=== PATIENT | female | born 1985 | race Caucasian/White ===

== ENCOUNTER 2018-03-16 07:42 | Emergency (ER) | payer BC ==
[~2018-03-16] VITALS: Ht 165.1 cm; Wt 81.7 kg
[~2018-03-16 07:42] MED LIST: ACET325 PO; AMOX500 PO; ASPI81CH PO; Amoxicillin875 MG PO; Augmentin 875-1 EACH PO; CIPR500 PO; CITA20 PO; Cheratussin AC118 ML PO; Crutch1 EACH MISC; DOCU100 PO; GUAI120S1 PO; HYDMOR2 PO; IBUP800 PO; LORA.5 PO; Norco 5-325 Ta1 EACH PO; VICODIN 5-3001 EACH PO; Vanquish Caple1 EACH PO
== END 2018-03-16 09:17 | disposition home or self-care (01) ==
LOC: ER 07:42
DX: J02.9 Acute pharyngitis, unspecified (principal); Z88.8 Allergy status to other drugs, medicaments and biological substances
CPT/HCPCS: 87081; 87430

== ENCOUNTER → 2019-05-03 | Outpatient (CLI) | payer BC ==
[2019-05-07 15:06] LABS: HPV 16 Negative (Negative); HPV 18 Negative (Negative); HPV OTHER HR TYPES Negative (Negative)
== END | disposition home or self-care (01) ==
LOC: LAB SHORT 16:17 → LAB 16:17
PROVIDERS: Obstetrics & Gynecology
DX: Z12.4 Encounter for screening for malignant neoplasm of cervix (principal)
CPT/HCPCS: 87624; G0123

== ENCOUNTER 2020-12-24 08:45 | Inpatient (IN) | payer BC, OTHER ==
[~2020-12-24] VITALS: Ht 162.6 cm; Wt 101.0 kg
[~2020-12-24 08:45] MED LIST changes: +ALLEGRA ALLERG180 MG; +Flagyl250 MG PO; +PRENATAL TABLE1 EAC2; +VERA180ERB PO
[2020-12-24 10:05] LABS: BASOPHILS ABSOLUTE AUTO 0.03 K/mm3 (0.00-0.23); BASOPHILS PERCENT AUTO 0 % (0-2); EOSINOPHILS ABSOLUTE AUTO 0.03 K/mm3 (0.00-0.68); EOSINOPHILS PERCENT AUTO 0 % (0-6); Hematocrit 38.5 % (33.0-51.0); Hemoglobin 12.6 g/dL (11.5-16.0); IMMATURE GRAN ABSOLUTE AUTO 0.09 K/mm3 (0.00-0.10); IMMATURE GRAN PERCENT AUTO 1 % (0-1); LYMPHOCYTES ABSOLUTE AUTO 2.34 K/mm3 (0.84-5.20); LYMPHOCYTES PERCENT AUTO 22 % (21-46); MONOCYTES ABSOLUTE AUTO 0.87 K/mm3 (0.16-1.47); MONOCYTES PERCENT AUTO 8 % (4-13); Mean Corpuscular HGB 28.4 pg (26.0-34.0); Mean Corpuscular HGB Conc 32.7 g/dL (31.5-36.5); Mean Corpuscular Volume 87 fL (80-100); Mean Platelet Volume 11.2 fL (9.1-12.4); NEUTROPHILS ABSOLUTE AUTO 7.27 K/mm3 (1.96-9.15); NEUTROPHILS PERCENT AUTO 68 % (41-73); Platelet Count 201 K/mm3 (150-400); RDW Standard Deviation 53.8 fL (35.1-46.3); Red Blood Cell Count 4.43 M/mm3 (3.80-5.20); White Blood Cell Count 10.63 K/mm3 (4.00-11.30)
[2020-12-24 10:43] LABS: Influenza A, PCR Negative (NEGATIVE); Influenza B, PCR Negative (NEGATIVE); Resp Syncytial Virus, PCR Negative (NEGATIVE); SARS-Cov-2 (COVID-19) PCR, MMC Negative (NEGATIVE)
--- NOTE | 2020-12-24 12:27 | NUR ---
12/24/20 1227 ElysianLouisa M BABY A, MALE DELIVERED AT 1157. BABY B, MALE DELIVERED AT 1159. CORD BLOOD WAS COLLECTED INDIVIDUALLY ON BABY A AND BABY B. BOTH CORD BLOOD COLLECTIONS WERE GIVEN TO JOANNE HAYES TO SEND TO LAB. CORD SEGMENTS WERE ALSO COLLECTED INDIVIDUALLY AND GIVEN TO RT NIK FOR CORD BLOOD GASSES PER DR. TAPIA'S ORDER.
--- NOTE | 2020-12-24 23:44 | NUR ---
190-SBAR FROM Stewart MENJIVAR RN ASSUMED CARE OF PT AT THAT TIME.
[2020-12-25 05:43] LABS: BASOPHILS ABSOLUTE AUTO 0.03 K/mm3 (0.00-0.23); BASOPHILS PERCENT AUTO 0 % (0-2); EOSINOPHILS ABSOLUTE AUTO 0.03 K/mm3 (0.00-0.68); EOSINOPHILS PERCENT AUTO 0 % (0-6); Hematocrit 32.3 % (33.0-51.0); Hemoglobin 10.6 g/dL (11.5-16.0); IMMATURE GRAN ABSOLUTE AUTO 0.09 K/mm3 (0.00-0.10); IMMATURE GRAN PERCENT AUTO 1 % (0-1); LYMPHOCYTES ABSOLUTE AUTO 2.13 K/mm3 (0.84-5.20); LYMPHOCYTES PERCENT AUTO 16 % (21-46); MONOCYTES PERCENT AUTO 8 % (4-13); Mean Corpuscular HGB 28.6 pg (26.0-34.0); Mean Corpuscular HGB Conc 32.8 g/dL (31.5-36.5); Mean Corpuscular Volume 87 fL (80-100); Mean Platelet Volume 11.5 fL (9.1-12.4); NEUTROPHILS ABSOLUTE AUTO 10.34 K/mm3 (1.96-9.15); NEUTROPHILS PERCENT AUTO 75 % (41-73); Platelet Count 180 K/mm3 (150-400); RDW Coefficient Variation 17.1 % (11.7-14.2); RDW Standard Deviation 54.7 fL (35.1-46.3); White Blood Cell Count 13.72 K/mm3 (4.00-11.30)
--- NOTE | 2020-12-25 16:39 | NUR ---
CONSULT FOR TWIN BOYS, BORN AT 36 WEEKS GESTATION AND NOW 24 HOURS OLD. BABY A WT LOSS: 4%. BABY B WT LOSS: 6%. CURRENTLY BOTTLE FEEDING FORMULA WITH SUPPLEMENTS OF EBM WHEN AVAILABLE. BABIES TIRE QUICKLY WITH FEEDINGS. INSTRUCT IN ENERGY CONSERVATION OF THE PRE TERM BABY, BALANCING THE NEEDED INTAKE OF CALORIES WITH THE AMOUNT OF CALORIES EXPENDED DURING FEEDING AND HANDLING. RESTRESSED THE IMPORTANCE OF PUMPING AT LEAST 8X/DAY FOR 15-20 MINUTES TO STIMULATE MILK PRODUCTION AND AMOUNT PRODUCED WILL INCREASE EACH DAY. BOTH PARENTS ATTENTIVE TO EDUCATION, EXPERIENCED, AND HANDLE BABIES WELL. PLAN TO TRY EACH BABY AT BREAST IN A COUPLE DAYS WHEN ENERGY LEVEL IS IMPROVED, START WITH 1-2X AT BREAST/DAY AND INCREASE BABY TOLERATES. CONTINUE WITH SUPPLEMENTS UNTIL THEY ARE GAINING. MOM DENIES FURTHER QUESTIONS.
[2020-12-26] MEDS ORDERED: Percocet 5-3251 EACH PO (15:33)
--- NOTE | 2020-12-26 16:56 | NUR ---
DISCHARGE SUMMARY PT D/C TO [facility] STAT[facility] TODAY AT APPROX 1600. SCRIPTS AND DC INSTRUCTIONS PROVIDED PRIOR TO DC. FOLLOW APPT TIME PENDING NB TWIN'S DISCHARGE. PT VERBALIZED UNDERSTANDING AND DECLINED CONCERNS.
== END 2020-12-26 16:30 | disposition home or self-care (01) | DRG 784 ==
LOC: BC 09:27
PROVIDERS: ADMIT Obstetrics & Gynecology
PROC: 0UT70ZZ Resection of Bilateral Fallopian Tubes, Open Approach (ICD-10-PCS; 2020-12-24)
PROC: 10D00Z1 Extraction of Products of Conception, Low, Open Approach (ICD-10-PCS; principal; 2020-12-24 11:15)
DX: O36.5932 Maternal care for other known or suspected poor fetal growth, third trimester, fetus 2 (principal); O10.92 Unspecified pre-existing hypertension complicating childbirth; Z37.2 Twins, both liveborn; Z30.2 Encounter for sterilization; Z20.822 Contact with and (suspected) exposure to COVID-19
CPT/HCPCS: 0241U; 36415; 85025; 86850; 86900; 86901; 88302; 94660; A9270; J0690; J1885; J2370; J2405; J2590; J2704; J2765; J3010; J7120

== ENCOUNTER 2021-07-05 14:58 | Emergency (ER) | payer OTHER ==
[~2021-07-05] VITALS: Ht 165.1 cm; Wt 96.2 kg
[~2021-07-05 14:58] MED LIST changes: +Percocet 5-3251 EACH PO
== END 2021-07-05 18:31 | disposition home or self-care (01) ==
LOC: ER 14:58
DX: U07.1 COVID-19 (principal); Z91.040 Latex allergy status; Z88.8 Allergy status to other drugs, medicaments and biological substances
CPT/HCPCS: 99284

== ENCOUNTER → 2022-06-29 | Outpatient (CLI) | payer OTHER ==
[2022-06-29 14:52] LABS: BASOPHILS ABSOLUTE AUTO 0.02 K/mm3 (0.00-0.23); BASOPHILS PERCENT AUTO 0 % (0-2); EOSINOPHILS ABSOLUTE AUTO 0.03 K/mm3 (0.00-0.68); EOSINOPHILS PERCENT AUTO 0 % (0-6); Hematocrit 41.2 % (33.0-51.0); Hemoglobin 14.1 g/dL (11.5-16.0); IMMATURE GRAN ABSOLUTE AUTO 0.02 K/mm3 (0.00-0.10); IMMATURE GRAN PERCENT AUTO 0 % (0-1); LYMPHOCYTES ABSOLUTE AUTO 1.77 K/mm3 (0.84-5.20); LYMPHOCYTES PERCENT AUTO 22 % (21-46); MONOCYTES ABSOLUTE AUTO 0.51 K/mm3 (0.16-1.47); MONOCYTES PERCENT AUTO 6 % (4-13); Mean Corpuscular HGB 29.4 pg (26.0-34.0); Mean Corpuscular HGB Conc 34.2 g/dL (31.5-36.5); Mean Corpuscular Volume 86 fL (80-100); NEUTROPHILS ABSOLUTE AUTO 5.62 K/mm3 (1.96-9.15); NEUTROPHILS PERCENT AUTO 70 % (41-73); Platelet Count 229 K/mm3 (150-400); RDW Coefficient Variation 11.9 % (11.7-14.2); RDW Standard Deviation 37.4 fL (35.1-46.3); White Blood Cell Count 7.97 K/mm3 (4.00-11.30)
[2022-06-29 15:06] LABS: Albumin, Blood 4.3 g/dL (3.4-5.0); Albumin/Globulin Ratio 1.1 (0.8-1.8); Bilirubin, Total 1.5 mg/dL (0.1-1.0); Bun/Creatinine Ratio 23.7 (12.0-20.0); Calcium, Blood 9.3 mg/dL (8.5-10.1); Creatinine, Blood 0.76 mg/dL (0.40-1.00); Globulin, Blood 3.8 g/dL (2.2-4.0); Potassium, Blood 3.5 mmol/L (3.5-5.5); Total Protein, Blood 8.1 g/dL (6.4-8.2)
[2022-06-29 15:55] LABS: Bilirubin, Direct 0.3 mg/dL (0.0-0.3)
== END | disposition home or self-care (01) ==
LOC: LAB SHORT 14:48 → LAB 14:48
PROVIDERS: Chiropractor
DX: R11.2 Nausea with vomiting, unspecified (principal); R17 Unspecified jaundice
CPT/HCPCS: 80053; 82248; 85025

== ENCOUNTER 2022-09-19 03:25 | Emergency (ER) | payer OTHER ==
[~2022-09-19] VITALS: Ht 165.1 cm; Wt 78.5 kg
[2022-09-19 03:59] LABS: BASOPHILS ABSOLUTE AUTO 0.04 K/mm3 (0.00-0.23); BASOPHILS PERCENT AUTO 0 % (0-2); EOSINOPHILS ABSOLUTE AUTO 0.05 K/mm3 (0.00-0.68); EOSINOPHILS PERCENT AUTO 1 % (0-6); Hematocrit 39.9 % (33.0-51.0); Hemoglobin 13.9 g/dL (11.5-16.0); IMMATURE GRAN ABSOLUTE AUTO 0.03 K/mm3 (0.00-0.10); IMMATURE GRAN PERCENT AUTO 0 % (0-1); LYMPHOCYTES ABSOLUTE AUTO 2.14 K/mm3 (0.84-5.20); LYMPHOCYTES PERCENT AUTO 22 % (21-46); MONOCYTES ABSOLUTE AUTO 0.86 K/mm3 (0.16-1.47); MONOCYTES PERCENT AUTO 9 % (4-13); Mean Corpuscular HGB 29.7 pg (26.0-34.0); Mean Corpuscular HGB Conc 34.8 g/dL (31.5-36.5); Mean Corpuscular Volume 85 fL (80-100); Mean Platelet Volume 10.7 fL (9.1-12.4); NEUTROPHILS ABSOLUTE AUTO 6.48 K/mm3 (1.96-9.15); NEUTROPHILS PERCENT AUTO 68 % (41-73); Platelet Count 224 K/mm3 (150-400); RDW Coefficient Variation 11.7 % (11.7-14.2); RDW Standard Deviation 35.9 fL (35.1-46.3); Red Blood Cell Count 4.68 M/mm3 (3.80-5.20)
[2022-09-19 04:17] LABS: Albumin, Blood 4.1 g/dL (3.4-5.0); Albumin/Globulin Ratio 1.1 (0.8-1.8); Bun/Creatinine Ratio 30.5 (12.0-20.0); Calcium, Blood 9.8 mg/dL (8.5-10.1); Creatinine, Blood 0.59 mg/dL (0.40-1.00); Globulin, Blood 3.8 g/dL (2.2-4.0); Potassium, Blood 3.5 mmol/L (3.5-5.5); Total Protein, Blood 7.9 g/dL (6.4-8.2)
[2022-09-19 05:22] LABS: Source, Urine Voided
[2022-09-19 05:43] LABS: Appearance, Urine Clear (Clear); Bilirubin, Urine Neg (Neg); Blood, Urine 5+ (Neg); Color, Urine Yellow (P-Yellow); Glucose Qualitative, Urine Neg (Neg); Ketones, Urine Neg (Neg); Leukocyte Esterase, Urine 1+ (Neg); Nitrite, Urine Neg (Neg); Protein, Urine 2+ (Neg); Urobilinogen, Urine NORM (Normal)
[2022-09-19 05:50] LABS: Bacteria Rare /hpf; Mucus Light (0-Heavy); Red Blood Cells, Urine TNTC /hpf (0-2); Squamous Epithelial Cells Few /hpf (Few); White Blood Cells, Urine 0-2 /hpf (0-5)
== END 2022-09-19 07:44 | disposition home or self-care (01) ==
LOC: ER 03:25
PROVIDERS: Student in an Organized Health Care Education/Training Program
DX: R10.32 Left lower quadrant pain (principal); R19.7 Diarrhea, unspecified; R11.2 Nausea with vomiting, unspecified; Z91.040 Latex allergy status; Z88.8 Allergy status to other drugs, medicaments and biological substances
CPT/HCPCS: 36415; 74176; 80053; 81001; 81025; 85025; J1885; J2405

== ENCOUNTER 2025-08-30 11:55 | Day surgery (SDC) | payer BC, OTHER ==
[~2025-08-30] VITALS: Ht 162.6 cm; Wt 86.6 kg
[~2025-08-30 11:55] MED LIST changes: +Bupivacaine 0.5% W/EPI 1:200000 SDV 30 ML Vial ONE
[2025-08-30] MEDS ORDERED: CeFAZolin Sodium 2,000 MG VIAL ONE (12:13)
[2025-08-30] MEDS ORDERED: DECARA1250 MC1 PO (12:20)
[2025-08-30] MEDS ORDERED: VENLAFAXINE H37.5 M1 PO (12:20)
[2025-08-30] MEDS ORDERED: ATORVASTATIN CA20 MG PO (12:20)
[2025-08-30] MEDS ORDERED: MOUNJARO15 MG/0.5 SQ (12:21)
[2025-08-30] MEDS ORDERED: ERGO50000 PO (12:22)
[2025-08-30] MEDS ORDERED: FentaNYL Citrate 50 MCG/ML 2 ML Injection ONE (13:22)
[2025-08-30] MEDS ORDERED: Midazolam HCl 1MG / ML 2ML Vial ONE (13:22)
[2025-08-30] MEDS ORDERED: Ondansetron HCl 2 MG / ML 2ML Vial ONE (13:33)
[2025-08-30] MEDS ORDERED: Metoclopramide HCl 5MG / ML 2ML Vial ONE (13:33)
[2025-08-30] MEDS ORDERED: Sugammadex Sodium 200 MG/2ML SDV (100 MG/ML) ONE (14:08)
--- NOTE | 2025-08-30 14:32 | NUR ---
08/30/25 1432 Annamarie Washington O2 REMOVED AT 1427. PT HAS O2 SATS OF 96% ON ROOM AIR.
[2025-08-30 14:39] VITALS: BP 111/64
--- NOTE | 2025-08-30 15:06 | NUR ---
08/30/25 1506 DULCE MARIA GALINDO SPOUSE AT BEDSIDE. PT TOLERATING APPLE JUICE AND PETER CRACKERS. PT REPORTS PAIN AT 6/10 AT THIS TIME.
[2025-08-30] MEDS ORDERED: OxyCODONE 5 mg/Acetamin 325 mg TABLET ONE (15:07)
== END 2025-08-30 15:45 | disposition home or self-care (01) ==
LOC: ORSCSDS 11:55
PROVIDERS: Podiatrist Foot & Ankle Surgery
PROC: 0SGK04Z Fusion of Right Tarsometatarsal Joint with Internal Fixation Device, Open Approach (ICD-10-PCS; principal; 2025-08-30 13:15)
DX: M20.11 Hallux valgus (acquired), right foot (principal); M19.071 Primary osteoarthritis, right ankle and foot; F41.9 Anxiety disorder, unspecified; F32.A Depression, unspecified; E66.9 Obesity, unspecified; Z68.32 Body mass index [BMI] 32.0-32.9, adult; Z79.899 Other long term (current) drug therapy
CPT/HCPCS: A6253; A9270; C1713; J0690; J2250; J2405; J2704; J2765; J3010; J7120

== ENCOUNTER 2025-11-15 06:12 | Day surgery (SDC) | payer BC, OTHER ==
[~2025-11-15] VITALS: Ht 162.6 cm; Wt 85.7 kg
[~2025-11-15 06:12] MED LIST changes: +ATORVASTATIN CA20 MG PO; -Bupivacaine 0.5% W/EPI 1:200000 SDV 30 ML Vial ONE; +DECARA1250 MC1 PO; +ERGO50000 PO; +MOUNJARO15 MG/0.5 SQ; +VENLAFAXINE H37.5 M1 PO
[2025-11-15] MEDS ORDERED: CeFAZolin Sodium 2,000 MG VIAL ONE (06:26)
[2025-11-15] MEDS ORDERED: Bupivacaine 0.5% W/EPI 1:200000 SDV 30 ML Vial ONE (06:36)
[2025-11-15] MEDS ORDERED: VITAMIN C125 MG (06:38)
[2025-11-15] MEDS ORDERED: OMEP20ER (06:38)
[2025-11-15] MEDS ORDERED: Vitamin B Comple1 EA (06:38)
[2025-11-15] MEDS ORDERED: Ondansetron HCl 2 MG / ML 2ML Vial ONE ×2 (06:55→09:26)
[2025-11-15] MEDS ORDERED: Ketorolac Tromethamine 30mg Vial ONE (06:55)
[2025-11-15] MEDS ORDERED: FentaNYL Citrate 50 MCG/ML 2 ML Injection ONE ×3 (06:55→08:39)
[2025-11-15] MEDS ORDERED: Dexamethasone Sod Phos 10 MG/ML 1ML VIAL ONE (06:55)
[2025-11-15] MEDS ORDERED: Midazolam HCl 1MG / ML 2ML Vial ONE (07:04)
[2025-11-15 09:17] VITALS: BP 104/68
--- NOTE | 2025-11-15 11:20 | NUR ---
11/15/25 1120 Rosibel Brasher PT EDUCATION PROVIDED, REGARDING THE INCENTIVE SPIROMETER, PT'S SPO2 LEVELS DROPPED DOWN TO 88%. PT REALLY SLEEPY, HAD TO REMIND PT TO TAKE NICE DEEP BREATHES OCCASSIONALLY. PT'S RESTING HR WAS IN THE UPPER 50'S, 57BPM, DIPPED DOWN INTO THE HIGH 40'S. THIS RN WAS HESITANT TO GIVE A PAIN PILL, PO PERCOCET. THIS RN INSTRUCTED PT TO TAKE A PAIN PILL ONCE SHE GETS HOME, D/T PT BEING REALLY SLEEPY. PT UP TO RECLINER, APPEARS TO BE MORE AWAKE AFTER EDUCATION REGARDING INCENTIVE SPIROMETER WAS GIVEN, BY RN PATO. PT VERBALLY ACKNOWLEDGED UNDERSTANDING OF EDUCATION. PT ABLE TO TOLERATE FLUIDS AND SNACKS WELL. PT NON-WEIGHT BEARING, FOLLOWING ORDERS PER DR. ANDERSON. PT WILL HOME OFFICE CLAIMS EXAMINER PRESCRIPTION FROM [facility]. PT PLEASANT AND COOPERATIVE WITH CARE PROVIDED. ALL QUESTIONS ANSWERED, AND CONCERNS ADDRESSED. PT COLLECTED ALL PERSONAL BELONGINGS. PT ASSISTED TO PRIVATE VEHICLE, VIA W/C. VSS, PT READY TO REST MORE COMFORTABLY AT HOME IN HER BED.
== END 2025-11-15 10:10 | disposition home or self-care (01) ==
LOC: ORSCSDS 06:12
PROVIDERS: Podiatrist Foot & Ankle Surgery
PROC: 0SGL04Z Fusion of Left Tarsometatarsal Joint with Internal Fixation Device, Open Approach (ICD-10-PCS; principal; 2025-11-15 07:30)
DX: M21.612 Bunion of left foot (principal); I10 Essential (primary) hypertension; K21.9 Gastro-esophageal reflux disease without esophagitis; Z79.899 Other long term (current) drug therapy; E66.9 Obesity, unspecified; Z68.32 Body mass index [BMI] 32.0-32.9, adult; E78.5 Hyperlipidemia, unspecified; F41.9 Anxiety disorder, unspecified; Z87.891 Personal history of nicotine dependence
CPT/HCPCS: A6253; A9270; C1713; J0690; J1100; J1885; J2250; J2405; J2704; J3010; J7120